=== PATIENT | male | born 1955 | race Two or more races ===

== ENCOUNTER 2021-06-27 10:36 | Inpatient (IN) | payer OTHER ==
[~2021-06-27] VITALS: Ht 177.8 cm; Wt 92.5 kg
[2021-06-27 11:07] LABS: Basophils # (auto) 0 10 ^3/uL (0-0.2); Basophils % (auto) 0.2 % (0.0-2.0); Eosinophils # (auto) 0 10 ^3/uL (0-0.8); Hematocrit 44.3 % (41.0-53.0); Hemoglobin 14.6 g/dL (13.5-17.5); Lymphocytes # (auto) 1.2 10 ^3/uL (0.4-5.4); Lymphocytes % (auto) 8.7 % (10.0-50.0); Mean Corpuscular Hemoglobin 30.6 pg (28.0-32.0); Mean Corpuscular Hgb Conc. 32.9 g/dL (32.0-36.0); Mean Corpuscular Volume 93.2 fL (80.0-100.0); Monocytes # (auto) 1.5 10 ^3/uL (0-1.3); Monocytes % (auto) 11.5 % (0.0-12.0); Neutrophils # (auto) 10.7 10 ^3/uL (1.6-8.6); Neutrophils % (auto) 79.6 % (37.0-80.0); Nucleated Red Blood Cells % 0.1 %; Red Blood Cells 4.75 10^6/uL (4.5-5.90); Red Cell Distribution Width 14.3 % (11.8-14.3); White Blood Cell 13.5 10^3/uL (4.4-10.8)
[2021-06-27] MEDS ORDERED: SODIUM CHLORIDE 0.9% 1,000 ML IVB ONE (11:15)
[2021-06-27 11:18] LABS: Albumin 3.6 g/dL (3.4-5.0); Anion Gap 16 (5-15); Calcium 8.6 mg/dL (8.5-10.1); Carbon Dioxide 17 mmol/L (21-32); Chloride 104 mmol/L (98-107); Magnesium 3.5 mg/dL (1.6-2.6); Potassium 4.1 mmol/L (3.5-5.1); Sodium 137 mmol/L (136-145)
[2021-06-27 11:26] LABS: Alanine Aminotransferase 31 U/L (16-61); Alkaline Phosphatase 65 U/L (45-117); Aspartate Aminotransferase 19 U/L (15-37); BUN/Creatinine Ratio 33.1; Bilirubin, Total 0.3 mg/dL (0.2-1.0); GFR African American 35 mL/min; GFR Non-African American 29 mL/min; Total Protein 7.3 g/dL (6.4-8.2)
[2021-06-27 11:32] LABS: Blood Urea Nitrogen 80 mg/dL (7-18); Glucose 639 mg/dL (74-106)
[2021-06-27] MEDS ORDERED: DEXTROSE (50%) 50ML SYRG IV PRN (15:00)
[2021-06-27] MEDS ORDERED: InsuLIN R (HUMAN) 100 UNITS in SODIUM CHL 0.9% 99 ML IV SCH (15:00)
[2021-06-27] MEDS ORDERED: SOD CHL 0.45% 1,000 ML IV ONE (15:00)
[2021-06-27] MEDS ORDERED: INSULIN LANTUS (GLARGINE) 1 /0.01ml (100units/ml) SC ONE (15:00)
[2021-06-27] MEDS ORDERED: MORPHINE SULFATE INJECTION 2 MG/ML SYRG IV PRN ×2 (15:00)
[2021-06-27] MEDS ORDERED: InsuLIN REG 1unit/0.01ml Soln (100units/ml) IV ONE (15:00)
[2021-06-27] MEDS ORDERED: ONDANSETRON HCL 4 MG/2 ML VIAL IV PRN (15:00)
[2021-06-27] MEDS ORDERED: NITROGLYCERIN 0.4 MG SL TAB SL PRN (15:00)
[2021-06-27] MEDS: ACCU-CHEK COMFORT CURVE STRIP VI SCH ×6 (15:50→22:57)
[2021-06-27] MEDS ORDERED: ACETAMINOPHEN 500 MG TAB PO PRN (16:15)
[2021-06-27 18:33] LABS: BUN/Creatinine Ratio 34.1; Calcium 8.1 mg/dL (8.5-10.1); Potassium 3.7 mmol/L (3.5-5.1)
[2021-06-28] MEDS: ACCU-CHEK COMFORT CURVE STRIP VI SCH ×10 (00:15→23:39)
[2021-06-28 01:46] LABS: Albumin 2.9 g/dL (3.4-5.0); BUN/Creatinine Ratio 31.7; Calcium 7.7 mg/dL (8.5-10.1); Potassium 3.5 mmol/L (3.5-5.1)
[2021-06-28 01:49] LABS: Bilirubin, Total 0.2 mg/dL (0.2-1.0); Total Protein 6.4 g/dL (6.4-8.2)
[2021-06-28 04:19] LABS: Basophils # (auto) 0 10 ^3/uL (0-0.2); Basophils % (auto) 0.2 % (0.0-2.0); Eosinophils # (auto) 0 10 ^3/uL (0-0.8); Hemoglobin 13.4 g/dL (13.5-17.5); Lymphocytes # (auto) 0.9 10 ^3/uL (0.4-5.4); Lymphocytes % (auto) 9.8 % (10.0-50.0); Mean Corpuscular Hemoglobin 31.2 pg (28.0-32.0); Mean Corpuscular Hgb Conc. 34.5 g/dL (32.0-36.0); Mean Corpuscular Volume 90.5 fL (80.0-100.0); Monocytes # (auto) 1.1 10 ^3/uL (0-1.3); Monocytes % (auto) 12.1 % (0.0-12.0); Neutrophils # (auto) 7.2 10 ^3/uL (1.6-8.6); Neutrophils % (auto) 77.9 % (37.0-80.0); Nucleated Red Blood Cells % 0.1 %; Red Blood Cells 4.31 10^6/uL (4.5-5.90); Red Cell Distribution Width 14.2 % (11.8-14.3); White Blood Cell 9.3 10^3/uL (4.4-10.8)
[2021-06-28 04:24] LABS: Calcium 7.9 mg/dL (8.5-10.1); Potassium 3.6 mmol/L (3.5-5.1)
[2021-06-28 04:31] LABS: Albumin 2.9 g/dL (3.4-5.0); BUN/Creatinine Ratio 32.5; Bilirubin, Total 0.3 mg/dL (0.2-1.0); Total Protein 6.2 g/dL (6.4-8.2)
[2021-06-28] MEDS: ALBUTEROL SULF HFA 90MCG INH 200DOSE IN PRN ×2 (07:00→18:58)
[2021-06-28] MEDS ORDERED: LABETALOL HCL 5 MG/ML 4ML SYRINGE IV ONE ×2 (08:58→09:00)
[2021-06-28] MEDS: ASCORBIC ACID 1,000 MG TAB PO SCH (09:22)
[2021-06-28] MEDS: ZINC SULFATE 220mg CAP or TAB PO SCH (09:22)
[2021-06-28] MEDS: AZITHROMYCIN 500MG/ 250ML 250 ML IV SCH (09:22)
[2021-06-28] MEDS: CHOLECALCIFEROL (VITD3) 2,000 UNIT CAP/TAB PO SCH (09:23)
[2021-06-28] MEDS: ENOXAPARIN SOD 40 MG/0.4 ML SYRINGE SC SCH ×2 (09:24→21:54)
[2021-06-28] MEDS ORDERED: SODIUM CHLORIDE 0.9% 1,000 ML IV SCH (09:30)
[2021-06-28 09:32] LABS: Albumin 3.1 g/dL (3.4-5.0); Calcium 8.3 mg/dL (8.5-10.1); Potassium 3.5 mmol/L (3.5-5.1)
[2021-06-28 09:35] LABS: BUN/Creatinine Ratio 29.3; Bilirubin, Total 0.4 mg/dL (0.2-1.0); Total Protein 6.7 g/dL (6.4-8.2)
[2021-06-28] MEDS ORDERED: INSULIN LANTUS (GLARGINE) 1 /0.01ml (100units/ml) SC SCH (10:00)
[2021-06-28] MEDS ORDERED: PANTOPRAZOLE 40 MG/10 ML VIAL INJ IV SCH (10:00)
[2021-06-28] MEDS ORDERED: DEXTROSE (50%) 50ML SYRG IV PRN ×5 (11:00→11:15)
[2021-06-28] MEDS ORDERED: INSULIN LANTUS (GLARGINE) 1 /0.01ml (100units/ml) SC ONE (11:00)
[2021-06-28] MEDS ORDERED: amLODIPine BESYLATE 5 MG TAB PO ONE ×4 (11:00)
[2021-06-28] MEDS ORDERED: hydrALAZINE HCL 20 MG/ML VL IV PRN ×3 (11:00)
[2021-06-28] MEDS: InsuLIN REG 1unit/0.01ml Soln (100units/ml) SC SCH ×3 (11:22→23:43)
[2021-06-28] MEDS ORDERED: POTASSIUM PHOSPHATE 26.4 MEQ in SODIUM CHL 0.9% 100 ML IV ONE (11:30)
[2021-06-28] MEDS ORDERED: ACCU-CHEK COMFORT CURVE STRIP VI SCH ×3 (12:00)
[2021-06-28] MEDS ORDERED: InsuLIN REG 1unit/0.01ml Soln (100units/ml) SC SCH ×4 (12:00)
[2021-06-28] MEDS ORDERED: LABETALOL HCL 200 MG TAB PO ONE (13:45)
[2021-06-28] MEDS: hydrALAZINE HCL 20 MG/ML VL IV PRN (14:28)
[2021-06-28 17:35] LABS: Urine Bacteria NONE SEEN /hpf (None Seen); Urine Blood Negative /uL (Negative); Urine Mucus FEW (None Seen); Urine Specific Gravity 1.024 (1.001-1.035); Urine WBC 1 /hpf (0 - 3)
[2021-06-28 20:50] VITALS: BP 130/69
[2021-06-28] MEDS: LABETALOL HCL 200 MG TAB PO SCH (21:54)
[2021-06-28 22:00] VITALS: BP 130/69
[2021-06-29] VITALS (7 sets, daily range): BP systolic 101–157; BP diastolic 48–75
[2021-06-29] MEDS: ACCU-CHEK COMFORT CURVE STRIP VI SCH ×4 (06:39→23:20)
[2021-06-29] MEDS: InsuLIN REG 1unit/0.01ml Soln (100units/ml) SC SCH ×4 (06:45→23:22)
[2021-06-29] MEDS: ALBUTEROL SULF HFA 90MCG INH 200DOSE IN PRN (06:53)
[2021-06-29] MEDS: AZITHROMYCIN 500MG/ 250ML 250 ML IV SCH (09:39)
[2021-06-29] MEDS: ZINC SULFATE 220mg CAP or TAB PO SCH (09:39)
[2021-06-29] MEDS: LABETALOL HCL 200 MG TAB PO SCH (09:40)
[2021-06-29] MEDS: ASCORBIC ACID 1,000 MG TAB PO SCH (09:41)
[2021-06-29] MEDS: CHOLECALCIFEROL (VITD3) 2,000 UNIT CAP/TAB PO SCH (09:41)
[2021-06-29] MEDS ORDERED: amLODIPine BESYLATE 5 MG TAB PO SCH ×4 (10:00)
[2021-06-29] MEDS: ENOXAPARIN SOD 40 MG/0.4 ML SYRINGE SC SCH (10:01)
[2021-06-29] MEDS: INSULIN LANTUS (GLARGINE) 1 /0.01ml (100units/ml) SC SCH (10:02)
[2021-06-29 10:24] LABS: Basophils # (auto) 0 10 ^3/uL (0-0.2); Basophils % (auto) 0.1 % (0.0-2.0); Eosinophils # (auto) 0 10 ^3/uL (0-0.8); Lymphocytes # (auto) 0.5 10 ^3/uL (0.4-5.4); Nucleated Red Blood Cells % 0.1 %
[2021-06-29 10:29] LABS: Hematocrit 36.4 % (41.0-53.0); Hemoglobin 12.1 g/dL (13.5-17.5); Lymphocytes % (auto) 14.2 % (10.0-50.0); Mean Corpuscular Hemoglobin 30.4 pg (28.0-32.0); Mean Corpuscular Hgb Conc. 33.3 g/dL (32.0-36.0); Mean Corpuscular Volume 91.4 fL (80.0-100.0); Monocytes # (auto) 0.7 10 ^3/uL (0-1.3); Monocytes % (auto) 17.1 % (0.0-12.0); Neutrophils # (auto) 2.6 10 ^3/uL (1.6-8.6); Neutrophils % (auto) 68.6 % (37.0-80.0); Red Blood Cells 3.98 10^6/uL (4.5-5.90); Red Cell Distribution Width 14.4 % (11.8-14.3); White Blood Cell 3.8 10^3/uL (4.4-10.8)
[2021-06-29 10:36] LABS: Calcium 7.7 mg/dL (8.5-10.1); Potassium 3.4 mmol/L (3.5-5.1)
[2021-06-29 10:38] LABS: BUN/Creatinine Ratio 26.3; Phosphorus 1.8 mg/dL (2.5-4.90)
[2021-06-29] MEDS ORDERED: BACLOFEN 10 MG TAB PO ONE (15:15)
[2021-06-29] MEDS ORDERED: PANTOPRAZOLE 40 MG TAB PO ONE (15:15)
[2021-06-29] MEDS ORDERED: BACLOFEN 10 MG TAB PO PRN (15:30)
[2021-06-29] MEDS ORDERED: SODIUM CHLORIDE 0.9% 1,000 ML IV ONE (20:45)
[2021-06-29] MEDS ORDERED: POTASSIUM CHL 10 Meq TABLET PO ONE (20:45)
[2021-06-30 04:30] VITALS: BP 146/71
[2021-06-30] MEDS: ACCU-CHEK COMFORT CURVE STRIP VI SCH ×4 (05:06→22:13)
[2021-06-30] MEDS: InsuLIN REG 1unit/0.01ml Soln (100units/ml) SC SCH ×4 (05:08→22:13)
[2021-06-30 06:24] LABS: Basophils # (auto) 0 10 ^3/uL (0-0.2); Basophils % (auto) 0.3 % (0.0-2.0); Eosinophils # (auto) 0 10 ^3/uL (0-0.8); Hematocrit 35.8 % (41.0-53.0); Hemoglobin 12.1 g/dL (13.5-17.5); Lymphocytes # (auto) 0.8 10 ^3/uL (0.4-5.4); Lymphocytes % (auto) 18.8 % (10.0-50.0); Mean Corpuscular Hemoglobin 30.6 pg (28.0-32.0); Mean Corpuscular Hgb Conc. 33.9 g/dL (32.0-36.0); Mean Corpuscular Volume 90.2 fL (80.0-100.0); Monocytes # (auto) 0.4 10 ^3/uL (0-1.3); Monocytes % (auto) 9.8 % (0.0-12.0); Neutrophils # (auto) 2.9 10 ^3/uL (1.6-8.6); Neutrophils % (auto) 71.1 % (37.0-80.0); Red Blood Cells 3.96 10^6/uL (4.5-5.90); Red Cell Distribution Width 13.8 % (11.8-14.3)
[2021-06-30 06:41] LABS: Calcium 7.3 mg/dL (8.5-10.1)
[2021-06-30 06:49] LABS: BUN/Creatinine Ratio 20.2
[2021-06-30] MEDS: ALBUTEROL SULF HFA 90MCG INH 200DOSE IN PRN (07:41)
[2021-06-30 09:00] VITALS: BP 148/75
[2021-06-30] MEDS: AZITHROMYCIN 500MG/ 250ML 250 ML IV SCH (10:00)
[2021-06-30] MEDS: ZINC SULFATE 220mg CAP or TAB PO SCH (10:00)
[2021-06-30] MEDS: PANTOPRAZOLE 40 MG TAB PO SCH (10:01)
[2021-06-30] MEDS: ASCORBIC ACID 1,000 MG TAB PO SCH (10:01)
[2021-06-30] MEDS: amLODIPine BESYLATE 5 MG TAB PO SCH (10:01)
[2021-06-30] MEDS: CHOLECALCIFEROL (VITD3) 2,000 UNIT CAP/TAB PO SCH (10:01)
[2021-06-30] MEDS: INSULIN LANTUS (GLARGINE) 1 /0.01ml (100units/ml) SC SCH (11:27)
[2021-06-30 13:00] VITALS: BP 138/59
[2021-06-30] MEDS ORDERED: POTASSIUM CHL 20 Meq TABLET PO ONE (14:00)
[2021-06-30 17:00] VITALS: BP 159/75
[2021-06-30 21:55] VITALS: BP 152/77
[2021-06-30] MEDS: BACLOFEN 10 MG TAB PO SCH (22:12)
[2021-06-30] MEDS: hydrALAZINE HCL 20 MG/ML VL IV PRN (22:14)
[2021-07-01 05:40] VITALS: BP 157/80
[2021-07-01] MEDS: BACLOFEN 10 MG TAB PO SCH ×3 (06:01→22:26)
[2021-07-01] MEDS: ACCU-CHEK COMFORT CURVE STRIP VI SCH ×4 (06:01→22:28)
[2021-07-01] MEDS: InsuLIN REG 1unit/0.01ml Soln (100units/ml) SC SCH ×4 (06:02→22:28)
[2021-07-01] MEDS: hydrALAZINE HCL 20 MG/ML VL IV PRN (06:05)
[2021-07-01] MEDS: ALBUTEROL SULF HFA 90MCG INH 200DOSE IN PRN ×2 (06:44→22:12)
[2021-07-01] MEDS: AZITHROMYCIN 500MG/ 250ML 250 ML IV SCH (09:21)
[2021-07-01] MEDS: PANTOPRAZOLE 40 MG TAB PO SCH (09:22)
[2021-07-01] MEDS: ZINC SULFATE 220mg CAP or TAB PO SCH (09:22)
[2021-07-01] MEDS: CHOLECALCIFEROL (VITD3) 2,000 UNIT CAP/TAB PO SCH (09:23)
[2021-07-01] MEDS: ASCORBIC ACID 1,000 MG TAB PO SCH (09:23)
[2021-07-01] MEDS: INSULIN LANTUS (GLARGINE) 1 /0.01ml (100units/ml) SC SCH ×2 (09:24→22:28)
[2021-07-01] MEDS: amLODIPine BESYLATE 5 MG TAB PO SCH (09:43)
[2021-07-01 10:25] VITALS: BP 157/75
[2021-07-01] MEDS ORDERED: LOSARTAN POTASSIUM 25 MG TAB PO ONE (10:45)
[2021-07-01] MEDS ORDERED: REMDESIVIR 200 MG in NS 210ml LOADING DOSE ADULT IV ONE (11:30)
[2021-07-01] MEDS ORDERED: guaiFENesin-DM 100/10mg/5ml SYR PO PRN (11:30)
[2021-07-01] MEDS ORDERED: REMDESIVIR PER PHARMACY 0 ML IV SCH (11:30)
[2021-07-01 11:50] LABS: Basophils # (auto) 0 10 ^3/uL (0-0.2); Basophils % (auto) 0.4 % (0.0-2.0); Eosinophils # (auto) 0 10 ^3/uL (0-0.8); Eosinophils % (auto) 0.1 % (0.0-7.0); Hematocrit 38.4 % (41.0-53.0); Hemoglobin 12.7 g/dL (13.5-17.5); Lymphocytes # (auto) 0.6 10 ^3/uL (0.4-5.4); Lymphocytes % (auto) 13.1 % (10.0-50.0); Mean Corpuscular Hgb Conc. 33.1 g/dL (32.0-36.0); Mean Corpuscular Volume 90.6 fL (80.0-100.0); Monocytes # (auto) 0.5 10 ^3/uL (0-1.3); Monocytes % (auto) 10.9 % (0.0-12.0); Neutrophils # (auto) 3.4 10 ^3/uL (1.6-8.6); Neutrophils % (auto) 75.5 % (37.0-80.0); Nucleated Red Blood Cells % 0.1 %; Red Blood Cells 4.24 10^6/uL (4.5-5.90); Red Cell Distribution Width 14.2 % (11.8-14.3); White Blood Cell 4.5 10^3/uL (4.4-10.8)
[2021-07-01 12:02] LABS: Albumin 2.1 g/dL (3.4-5.0); Calcium 7.3 mg/dL (8.5-10.1); Potassium 3.1 mmol/L (3.5-5.1)
[2021-07-01 12:25] LABS: BUN/Creatinine Ratio 15.1; Bilirubin, Total 0.6 mg/dL (0.2-1.0); Total Protein 5.6 g/dL (6.4-8.2)
[2021-07-01] MEDS: IVERMECTIN 3 MG TAB PO SCH (12:43)
[2021-07-01 13:11] VITALS: BP 151/83
[2021-07-01] MEDS ORDERED: FUROSEMIDE 40 MG/4 ML VIAL IV ONE (14:00)
[2021-07-01] MEDS ORDERED: POTASSIUM CHL 20 Meq TABLET PO ONE (14:00)
[2021-07-01 17:13] LABS: Basophils # (auto) 0 10 ^3/uL (0-0.2); Basophils % (auto) 0.1 % (0.0-2.0); Eosinophils # (auto) 0 10 ^3/uL (0-0.8); Hematocrit 37.9 % (41.0-53.0); Hemoglobin 12.6 g/dL (13.5-17.5); Lymphocytes # (auto) 0.9 10 ^3/uL (0.4-5.4); Lymphocytes % (auto) 20.8 % (10.0-50.0); Mean Corpuscular Hemoglobin 29.7 pg (28.0-32.0); Mean Corpuscular Hgb Conc. 33.3 g/dL (32.0-36.0); Mean Corpuscular Volume 89.3 fL (80.0-100.0); Monocytes # (auto) 0.4 10 ^3/uL (0-1.3); Monocytes % (auto) 10.1 % (0.0-12.0); Neutrophils # (auto) 2.9 10 ^3/uL (1.6-8.6); Red Blood Cells 4.24 10^6/uL (4.5-5.90); Red Cell Distribution Width 13.8 % (11.8-14.3); White Blood Cell 4.3 10^3/uL (4.4-10.8)
[2021-07-01 17:38] LABS: INR 0.99 (0.9-1.15)
[2021-07-01 22:00] VITALS: BP 132/69
[2021-07-01] MEDS: BUDESONIDE (INHALATION) 180 MCG IH IN SCH (22:12)
[2021-07-02 04:57] VITALS: BP 133/69
[2021-07-02 05:21] VITALS: BP 133/69
[2021-07-02] MEDS: ACCU-CHEK COMFORT CURVE STRIP VI SCH ×3 (06:03→16:46)
[2021-07-02] MEDS: InsuLIN REG 1unit/0.01ml Soln (100units/ml) SC SCH ×4 (06:05→23:59)
[2021-07-02] MEDS: BACLOFEN 10 MG TAB PO SCH ×2 (06:12→12:42)
[2021-07-02] MEDS: BUDESONIDE (INHALATION) 180 MCG IH IN SCH ×2 (06:59→20:50)
[2021-07-02] MEDS: ALBUTEROL SULF HFA 90MCG INH 200DOSE IN PRN ×2 (07:00→20:51)
[2021-07-02 09:00] VITALS: BP 135/73
[2021-07-02] MEDS: AZITHROMYCIN 500MG/ 250ML 250 ML IV SCH (09:07)
[2021-07-02] MEDS: CHOLECALCIFEROL (VITD3) 2,000 UNIT CAP/TAB PO SCH (09:08)
[2021-07-02] MEDS: DexAMETHasone SOD PHOS 10MG/1ML VIAL INJ IV SCH (09:08)
[2021-07-02] MEDS: IVERMECTIN 3 MG TAB PO SCH (09:08)
[2021-07-02] MEDS: amLODIPine BESYLATE 5 MG TAB PO SCH (09:09)
[2021-07-02] MEDS: ASCORBIC ACID 1,000 MG TAB PO SCH (09:09)
[2021-07-02] MEDS: ZINC SULFATE 220mg CAP or TAB PO SCH (09:10)
[2021-07-02] MEDS: LOSARTAN POTASSIUM 25 MG TAB PO SCH (09:10)
[2021-07-02] MEDS: PANTOPRAZOLE 40 MG TAB PO SCH (09:11)
[2021-07-02] MEDS: INSULIN LANTUS (GLARGINE) 1 /0.01ml (100units/ml) SC SCH ×3 (09:22→22:00)
[2021-07-02] MEDS ORDERED: guaiFENesin-DM 100/10mg/5ml SYR PO PRN (11:45)
[2021-07-02 13:00] VITALS: BP 123/47
[2021-07-02] MEDS: REMDESIVIR 100mg 100 MG in SODIUM CHL 0.9% 230 ML IV SCH (16:46)
[2021-07-02 17:00] VITALS: BP 127/64
[2021-07-02 22:00] VITALS: BP 135/58
[2021-07-02] MEDS ORDERED: BACLOFEN 10 MG TAB PO PRN (22:00)
[2021-07-03] MEDS: ACCU-CHEK COMFORT CURVE STRIP VI SCH ×5 (00:02→22:47)
[2021-07-03 05:00] VITALS: BP 120/61
[2021-07-03] MEDS: InsuLIN REG 1unit/0.01ml Soln (100units/ml) SC SCH ×4 (05:46→22:48)
[2021-07-03 05:56] LABS: Basophils # (auto) 0 10 ^3/uL (0-0.2); Basophils % (auto) 0.4 % (0.0-2.0); Eosinophils # (auto) 0 10 ^3/uL (0-0.8); Hemoglobin 12.6 g/dL (13.5-17.5); Lymphocytes % (auto) 21.5 % (10.0-50.0); Mean Corpuscular Hgb Conc. 33.9 g/dL (32.0-36.0); Mean Corpuscular Volume 88.6 fL (80.0-100.0); Monocytes # (auto) 0.7 10 ^3/uL (0-1.3); Monocytes % (auto) 16.4 % (0.0-12.0); Neutrophils # (auto) 2.8 10 ^3/uL (1.6-8.6); Neutrophils % (auto) 61.7 % (37.0-80.0); Nucleated Red Blood Cells % 0.1 %; Red Blood Cells 4.18 10^6/uL (4.5-5.90); Red Cell Distribution Width 13.8 % (11.8-14.3); White Blood Cell 4.5 10^3/uL (4.4-10.8)
[2021-07-03 06:28] LABS: Albumin 2.1 g/dL (3.4-5.0); Potassium 3.3 mmol/L (3.5-5.1)
[2021-07-03 06:33] LABS: Bilirubin, Total 0.6 mg/dL (0.2-1.0); Total Protein 5.8 g/dL (6.4-8.2)
[2021-07-03] MEDS: BUDESONIDE (INHALATION) 180 MCG IH IN SCH ×2 (06:53→21:34)
[2021-07-03] MEDS: ALBUTEROL SULF HFA 90MCG INH 200DOSE IN PRN ×2 (06:53→21:34)
[2021-07-03] MEDS: AZITHROMYCIN 500MG/ 250ML 250 ML IV SCH (08:27)
[2021-07-03] MEDS: DexAMETHasone SOD PHOS 10MG/1ML VIAL INJ IV SCH (08:27)
[2021-07-03] MEDS: ZINC SULFATE 220mg CAP or TAB PO SCH (08:28)
[2021-07-03] MEDS: LOSARTAN POTASSIUM 25 MG TAB PO SCH (08:29)
[2021-07-03] MEDS: amLODIPine BESYLATE 5 MG TAB PO SCH (08:30)
[2021-07-03] MEDS: PANTOPRAZOLE 40 MG TAB PO SCH (08:30)
[2021-07-03] MEDS: IVERMECTIN 3 MG TAB PO SCH (08:31)
[2021-07-03] MEDS: ASCORBIC ACID 1,000 MG TAB PO SCH (08:31)
[2021-07-03] MEDS: CHOLECALCIFEROL (VITD3) 2,000 UNIT CAP/TAB PO SCH (08:32)
[2021-07-03] MEDS: INSULIN LANTUS (GLARGINE) 1 /0.01ml (100units/ml) SC SCH ×2 (08:33→22:47)
[2021-07-03 09:00] VITALS: BP 132/61
[2021-07-03] MEDS ORDERED: POTASSIUM CHL 20 Meq TABLET PO ONE (09:15)
[2021-07-03] MEDS: ENOXAPARIN SOD 40 MG/0.4 ML SYRINGE SC SCH (10:23)
[2021-07-03 13:00] VITALS: BP 141/70
[2021-07-03] MEDS ORDERED: ZOLPIDEM TARTRATE 5 MG TAB PO PRN (14:00)
[2021-07-03] MEDS: REMDESIVIR 100mg 100 MG in SODIUM CHL 0.9% 230 ML IV SCH (15:16)
[2021-07-03 16:59] VITALS: BP 111/55
[2021-07-03 22:00] VITALS: BP 133/95
[2021-07-04 05:00] VITALS: BP 115/59
[2021-07-04] MEDS: ACCU-CHEK COMFORT CURVE STRIP VI SCH ×4 (05:30→23:45)
[2021-07-04] MEDS: InsuLIN REG 1unit/0.01ml Soln (100units/ml) SC SCH ×4 (05:30→23:45)
[2021-07-04 06:29] LABS: Albumin 2.1 g/dL (3.4-5.0); BUN/Creatinine Ratio 22.4; Bilirubin, Total 0.6 mg/dL (0.2-1.0); Calcium 7.7 mg/dL (8.5-10.1); Total Protein 5.3 g/dL (6.4-8.2)
[2021-07-04] MEDS: ALBUTEROL SULF HFA 90MCG INH 200DOSE IN PRN ×2 (06:54→21:54)
[2021-07-04] MEDS: BUDESONIDE (INHALATION) 180 MCG IH IN SCH ×2 (06:55→21:54)
[2021-07-04 08:36] LABS: Potassium 2.7 mmol/L (3.5-5.1)
[2021-07-04 09:00] VITALS: BP 133/69
[2021-07-04] MEDS ORDERED: POTASSIUM CHL 20 Meq TABLET PO ONE (09:15)
[2021-07-04] MEDS ORDERED: POTASSIUM CHLORIDE 40 MEQ, LIDOCAINE 1% (LOCAL ANESTH.) 4 ML in SODIUM CHL 0.9% 250 ML IV ONE (09:15)
[2021-07-04] MEDS: DexAMETHasone SOD PHOS 10MG/1ML VIAL INJ IV SCH (10:55)
[2021-07-04] MEDS: AZITHROMYCIN 500MG/ 250ML 250 ML IV SCH (10:55)
[2021-07-04] MEDS: ZINC SULFATE 220mg CAP or TAB PO SCH (10:56)
[2021-07-04] MEDS: LOSARTAN POTASSIUM 25 MG TAB PO SCH (10:56)
[2021-07-04] MEDS: PANTOPRAZOLE 40 MG TAB PO SCH (10:57)
[2021-07-04] MEDS: IVERMECTIN 3 MG TAB PO SCH (10:57)
[2021-07-04] MEDS: amLODIPine BESYLATE 5 MG TAB PO SCH (10:57)
[2021-07-04] MEDS: ASCORBIC ACID 1,000 MG TAB PO SCH (10:58)
[2021-07-04] MEDS: CHOLECALCIFEROL (VITD3) 2,000 UNIT CAP/TAB PO SCH (10:58)
[2021-07-04] MEDS: ENOXAPARIN SOD 40 MG/0.4 ML SYRINGE SC SCH (10:59)
[2021-07-04] MEDS: INSULIN LANTUS (GLARGINE) 1 /0.01ml (100units/ml) SC SCH ×2 (11:59→23:10)
[2021-07-04 13:00] VITALS: BP 142/77
[2021-07-04] MEDS: REMDESIVIR 100mg 100 MG in SODIUM CHL 0.9% 230 ML IV SCH (15:44)
[2021-07-04 17:12] VITALS: BP 136/56
[2021-07-04 22:00] VITALS: BP 123/68
[2021-07-05 05:00] VITALS: BP 108/57
[2021-07-05] MEDS: ACCU-CHEK COMFORT CURVE STRIP VI SCH ×3 (05:59→18:00)
[2021-07-05] MEDS: InsuLIN REG 1unit/0.01ml Soln (100units/ml) SC SCH ×3 (05:59→18:00)
[2021-07-05 07:07] LABS: Basophils # (auto) 0 10 ^3/uL (0-0.2); Basophils % (auto) 0.1 % (0.0-2.0); Eosinophils # (auto) 0 10 ^3/uL (0-0.8); Hematocrit 33.9 % (41.0-53.0); Hemoglobin 11.2 g/dL (13.5-17.5); Lymphocytes # (auto) 0.7 10 ^3/uL (0.4-5.4); Lymphocytes % (auto) 11.4 % (10.0-50.0); Mean Corpuscular Hemoglobin 29.9 pg (28.0-32.0); Mean Corpuscular Hgb Conc. 33.1 g/dL (32.0-36.0); Mean Corpuscular Volume 90.2 fL (80.0-100.0); Monocytes # (auto) 0.6 10 ^3/uL (0-1.3); Monocytes % (auto) 9.5 % (0.0-12.0); Neutrophils # (auto) 5.2 10 ^3/uL (1.6-8.6); Red Blood Cells 3.76 10^6/uL (4.5-5.90); Red Cell Distribution Width 13.8 % (11.8-14.3); White Blood Cell 6.5 10^3/uL (4.4-10.8)
[2021-07-05 07:41] LABS: Albumin 1.9 g/dL (3.4-5.0); Calcium 7.4 mg/dL (8.5-10.1); Potassium 3.8 mmol/L (3.5-5.1)
[2021-07-05 07:45] LABS: Bilirubin, Total 0.5 mg/dL (0.2-1.0); Total Protein 5.2 g/dL (6.4-8.2)
[2021-07-05 09:00] VITALS: BP 125/67
[2021-07-05] MEDS ORDERED: CHOL1CAP47 PO (09:18)
[2021-07-05] MEDS ORDERED: ASCO10003 PO (09:18)
[2021-07-05] MEDS ORDERED: ZINC220T6 PO (09:18)
[2021-07-05] MEDS ORDERED: AMOX-277 PO (09:18)
[2021-07-05] MEDS ORDERED: ALBUAER3 IN (09:18)
[2021-07-05] MEDS: BUDESONIDE (INHALATION) 180 MCG IH IN SCH (09:41)
[2021-07-05] MEDS: ALBUTEROL SULF HFA 90MCG INH 200DOSE IN PRN (09:41)
[2021-07-05] MEDS: ENOXAPARIN SOD 40 MG/0.4 ML SYRINGE SC SCH (09:45)
[2021-07-05] MEDS ORDERED: LOSA-39 PO (09:56)
[2021-07-05] MEDS ORDERED: CHOL20007 PO (09:56)
[2021-07-05] MEDS ORDERED: INSLISPI SC (09:56)
[2021-07-05] MEDS ORDERED: DULA0.5I SC (09:56)
[2021-07-05] MEDS ORDERED: INSLANTI SC (09:56)
[2021-07-05] MEDS ORDERED: CARV6.2551 PO (09:56)
[2021-07-05] MEDS ORDERED: ROSU40TA PO (09:56)
[2021-07-05] MEDS: AZITHROMYCIN 500MG/ 250ML 250 ML IV SCH (10:00)
[2021-07-05] MEDS: DexAMETHasone SOD PHOS 10MG/1ML VIAL INJ IV SCH (10:00)
[2021-07-05] MEDS: ZINC SULFATE 220mg CAP or TAB PO SCH (10:01)
[2021-07-05] MEDS: ASCORBIC ACID 1,000 MG TAB PO SCH (10:01)
[2021-07-05] MEDS: CHOLECALCIFEROL (VITD3) 2,000 UNIT CAP/TAB PO SCH (10:01)
[2021-07-05] MEDS: IVERMECTIN 3 MG TAB PO SCH (10:02)
[2021-07-05] MEDS: PANTOPRAZOLE 40 MG TAB PO SCH (10:02)
[2021-07-05] MEDS: amLODIPine BESYLATE 5 MG TAB PO SCH (10:03)
[2021-07-05] MEDS: LOSARTAN POTASSIUM 25 MG TAB PO SCH (10:03)
[2021-07-05] MEDS: INSULIN LANTUS (GLARGINE) 1 /0.01ml (100units/ml) SC SCH (10:18)
[2021-07-05 13:00] VITALS: BP 127/64
[2021-07-05] MEDS: REMDESIVIR 100mg 100 MG in SODIUM CHL 0.9% 230 ML IV SCH (15:30)
[2021-07-05 16:46] VITALS: BP 126/63
== END 2021-07-05 22:40 | disposition home or self-care (01) | DRG 871 ==
LOC: ER 10:36 → TELE 14:47 → TELE-EAST 06-28 20:26
PROVIDERS: ADMIT Nurse Practitioner Acute Care; ATTEND Internal Medicine
PROC: XW033E5 Introduction of Remdesivir Anti-infective into Peripheral Vein, Percutaneous Approach, New Technology Group 5 (ICD-10-PCS; principal; 2021-07-01)
DX: A41.89 Other specified sepsis (principal); U07.1 COVID-19; E11.10 Type 2 diabetes mellitus with ketoacidosis without coma; N17.0 Acute kidney failure with tubular necrosis; J12.82 Pneumonia due to coronavirus disease 2019; J96.00 Acute respiratory failure, unspecified whether with hypoxia or hypercapnia; N18.4 Chronic kidney disease, stage 4 (severe); E83.41 Hypermagnesemia; E11.21 Type 2 diabetes mellitus with diabetic nephropathy; E66.9 Obesity, unspecified; E11.40 Type 2 diabetes mellitus with diabetic neuropathy, unspecified; D69.59 Other secondary thrombocytopenia; I12.9 Hypertensive chronic kidney disease with stage 1 through stage 4 chronic kidney disease, or unspecified chronic kidney disease; Z68.29 Body mass index [BMI] 29.0-29.9, adult
CPT/HCPCS: 36415; 36600; 71045; 71250; 74176; 80048; 80053; 81001; 82010; 82728; 82805; 82962; 83036; 83735; 83930; 84100; 84132; 84443; 84484; 85025; 85379; 85384; 85610; 85730; 86141; 87426; 93005; 94640; 96361; 96374; C9113; G0378; J1100; J1815; J2001; J3490

== ENCOUNTER 2024-01-10 12:05 | Emergency (ER) | payer OTHER ==
[~2024-01-10] VITALS: Ht 177.8 cm; Wt 92.6 kg
[~2024-01-10 12:05] MED LIST: ALBUAER3 IN; AMOX875T4 PO; ASCO10003 PO; CARV6.2551 PO; CHOL1CAP47 PO; CHOL20007 PO; DULA0.5I SC; INSLANTI SC; INSLISPI SC; LOSA100T58 PO; ROSU40TA81 PO; ZINC220T6 PO
[2024-01-10 13:35] LABS: Rapid Influenza A Negative (Negative); Rapid Influenza B Negative (Negative)
[2024-01-10] MEDS ORDERED: ACET500T58 PO (13:42)
[2024-01-10] MEDS ORDERED: PRED10TA PO (13:42)
[2024-01-10] MEDS ORDERED: OSEL75CA5 PO (13:42)
[2024-01-10 13:45] LABS: COVID19 ANTIGEN SOFIA FIA NEGATIVE (NEGATIVE)
[2024-01-10 14:25] VITALS: BP 133/78; PULSE 101; RESP 18; TEMP 98; O2SAT 97
[2024-01-10] MEDS: OSELTAMIVIR 75 MG CAP PO ONE (14:31)
== END 2024-01-10 14:33 | disposition home or self-care (01) ==
LOC: ER 12:05
DX: J06.9 Acute upper respiratory infection, unspecified (principal); E11.9 Type 2 diabetes mellitus without complications; I10 Essential (primary) hypertension; Z20.822 Contact with and (suspected) exposure to COVID-19
CPT/HCPCS: 36415; 87426; 87804

== ENCOUNTER 2024-03-20 10:40 | Emergency (ER) | payer OTHER ==
[~2024-03-20] VITALS: Ht 177.8 cm; Wt 95.4 kg
[~2024-03-20 10:40] MED LIST changes: +ACET500T58 PO; +LOSA-535 PO; -LOSA100T58 PO; +OSEL75CA5 PO; +PRED10TA PO
[2024-03-20] MEDS: ONDANSETRON ODT 4 MG TAB PO ONE (11:51)
[2024-03-20] MEDS: MEPERIDINE HCL (50 MG/ML) 1 ML VIAL IM ONE (11:56)
[2024-03-20] MEDS ORDERED: amLODIPine BESYLATE 5 MG TAB PO ONE (12:15)
[2024-03-20] MEDS: LOSARTAN POTASSIUM 50 MG TAB PO ONE (12:17)
[2024-03-20] MEDS: diphenhdrAMINE HCL 50 MG/1 ML VL IM ONE (12:29)
[2024-03-20 12:54] VITALS: PULSE 98; RESP 18; TEMP 98.4; O2SAT 100
[2024-03-20] MEDS ORDERED: HYDR-4798 PO (12:55)
[2024-03-20 12:56] VITALS: BP 170/91; PULSE 78; RESP 18
== END 2024-03-20 13:09 | disposition home or self-care (01) ==
LOC: ER 10:40
DX: M51.16 Intervertebral disc disorders with radiculopathy, lumbar region (principal); M48.061 Spinal stenosis, lumbar region without neurogenic claudication; I10 Essential (primary) hypertension; E11.9 Type 2 diabetes mellitus without complications; Z91.148 Patient's other noncompliance with medication regimen for other reason; Z79.899 Other long term (current) drug therapy
CPT/HCPCS: 72100; 72131; 96372; 99285; J1200; J2175; Q0162

== ENCOUNTER 2024-04-21 21:38 | Inpatient (IN) | payer OTHER ==
[~2024-04-21] VITALS: Ht 177.8 cm; Wt 94.5 kg
[~2024-04-21 21:38] MED LIST changes: +HYDR-4798 PO
[2024-04-21 22:37] LABS: Eosinophils # (auto) 0 10 ^3/uL (0-0.8); Lymphocytes # (auto) 1.9 10 ^3/uL (0.4-5.4); Mean Corpuscular Hgb Conc. 28.2 g/dL (32.0-36.0); Red Cell Distribution Width 16.1 % (11.8-14.3)
[2024-04-21 22:39] LABS: Basophils # (auto) 0.2 10 ^3/uL (0-0.2); Basophils % (auto) 1.1 % (0.0-2.0); Eosinophils % (auto) 0.2 % (0.0-7.0); Hematocrit 50.6 % (41.0-53.0); Hemoglobin 14.3 g/dL (13.5-17.5); Mean Corpuscular Hemoglobin 30.3 pg (28.0-32.0); Mean Corpuscular Volume 107.6 fL (80.0-100.0); Monocytes # (auto) 1.1 10 ^3/uL (0-1.3); Monocytes % (auto) 5.3 % (0.0-12.0); Neutrophils # (auto) 18.1 10 ^3/uL (1.6-8.6); Neutrophils % (auto) 84.4 % (37.0-80.0); White Blood Cell 21.5 10^3/uL (4.4-10.8)
[2024-04-21 22:55] LABS: Alanine Aminotransferase 18 U/L (7-40); Albumin 4.5 g/dL (3.2-4.8); Alkaline Phosphatase 79 U/L (46-116); Anion Gap 28.00001 (5-15); Aspartate Aminotransferase 8 U/L (13-40); BUN/Creatinine Ratio 9.6 (10.0-20.0); Bilirubin, Total 0.3 mg/dL (0.2-1.0); Blood Urea Nitrogen 22 mg/dL (9-23); Calcium 9.5 mg/dL (8.7-10.4); Chloride 98 mmol/L (98-107); Lipase 33 U/L (12-53); Sodium 136 mmol/L (136-145); Total Protein 7.3 g/dL (5.7-8.2)
[2024-04-21 23:08] LABS: Carbon Dioxide < 10 mmol/L (20-30); Glucose 945 mg/dL (74-106)
[2024-04-22] VITALS (58 sets, daily range): BP systolic 87–128; BP diastolic 48–68; PULSE 70–124; RESP 12–30; TEMP 98.6–99.6; O2SAT 96–100
[2024-04-22] MEDS ORDERED: INSULIN DRIP 100 UNIT/100ML 100 ML IV SCH ×3 (00:45→15:00)
[2024-04-22] MEDS: ACETAMINOPHEN 325 MG TAB PO ONE (00:45)
[2024-04-22] MEDS ORDERED: SODIUM CHLORIDE 0.9% 1,000 ML IV SCH (00:45)
[2024-04-22] MEDS ORDERED: DEXTROSE (50%) 50ML SYRG IV PRN ×4 (00:45→15:30)
[2024-04-22] MEDS: MIDAZOLAM HCL 2MG/2ML 2ml VIAL (1mg/ml) ONE (00:47)
[2024-04-22] MEDS: MIDAZOLAM HCL 5 MG/ML-1ML VIAL IV ONE (00:47)
[2024-04-22] MEDS ORDERED: HYDROcodone-ACET 5/325MG TAB PO PRN (01:00)
[2024-04-22] MEDS ORDERED: MORPHINE SULFATE INJ 2 MG/ml SYRG IV PRN (01:00)
[2024-04-22] MEDS: PANTOPRAZOLE 80 MG in SODIUM CHL 0.9% 100 ML IV ONE (01:00)
[2024-04-22] MEDS ORDERED: NITROGLYCERIN 0.4 MG SL TAB SL PRN (01:00)
[2024-04-22] MEDS: ONDANSETRON HCL 4 MG/2 ML VIAL IV ONE (01:00)
[2024-04-22] MEDS ORDERED: ONDANSETRON HCL 4 MG/2 ML VIAL IV PRN (01:00)
[2024-04-22] MEDS: INSULIN LANTUS (GLARGINE) 1 /0.01ml (100units/ml) SC ONE (01:07)
[2024-04-22] MEDS: InsuLIN REG 1unit/0.01ml Soln (100units/ml) IV ONE ×2 (01:07→02:00)
[2024-04-22] MEDS: INSULIN DRIP 100 UNIT/100ML 100 ML IV SCH ×3 (01:09→06:15)
[2024-04-22] MEDS: SODIUM CHLORIDE 0.9% 1,000 ML IVB ONE (01:09)
[2024-04-22 01:16] LABS: Basophils # (auto) 0.1 10 ^3/uL (0-0.2); Basophils % (auto) 0.3 % (0.0-2.0); Eosinophils # (auto) 0 10 ^3/uL (0-0.8); Eosinophils % (auto) 0.1 % (0.0-7.0); Hematocrit 48.4 % (41.0-53.0); Hemoglobin 13.4 g/dL (13.5-17.5); Lymphocytes % (auto) 8.9 % (10.0-50.0); Mean Corpuscular Hemoglobin 30.4 pg (28.0-32.0); Mean Corpuscular Hgb Conc. 27.7 g/dL (32.0-36.0); Mean Corpuscular Volume 109.4 fL (80.0-100.0); Monocytes # (auto) 2.1 10 ^3/uL (0-1.3); Monocytes % (auto) 9.1 % (0.0-12.0); Neutrophils # (auto) 18.7 10 ^3/uL (1.6-8.6); Neutrophils % (auto) 81.6 % (37.0-80.0); Red Blood Cells 4.43 10^6/uL (4.5-5.90); Red Cell Distribution Width 15.5 % (11.8-14.3); White Blood Cell 22.9 10^3/uL (4.4-10.8)
[2024-04-22] MEDS: LORazepam 2MG/ML-1ML VIAL ONE (01:29)
[2024-04-22 01:30] LABS: INR 1.02 (0.9-1.15); Partial Thromboplastin Time 30.2 SEC (24.5-34.5); Prothrombin Time 10.8 sec (9.3-11.8)
[2024-04-22] MEDS ORDERED: ACCU-CHEK COMFORT CURVE STRIP VI SCH ×3 (01:30→07:30)
[2024-04-22 01:31] LABS: Chloride 95 mmol/L (98-107)
[2024-04-22 01:32] LABS: Anion Gap 25.00001 (5-15); Calcium 9.1 mg/dL (8.7-10.4)
[2024-04-22 01:37] LABS: BUN/Creatinine Ratio 10.1 (10.0-20.0); Blood Urea Nitrogen 27 mg/dL (9-23)
[2024-04-22 01:38] LABS: Magnesium 2.4 mg/dL (1.6-2.6)
[2024-04-22 01:39] LABS: Phosphorus 11.5 mg/dL (2.4-5.1)
[2024-04-22] MEDS: MAGNESIUM SULFATE 1GM/100ML 200 ML IV ONE (01:45)
[2024-04-22] MEDS: ETOMIDATE (2MG/ML) 20ML VIAL IV ONE (01:46)
[2024-04-22] MEDS: SUCCINYLCHOLINE CHLORIDE 20 MG/ML 10ML VIAL IV ONE (01:46)
[2024-04-22 01:49] LABS: Sodium 130 mmol/L (136-145)
[2024-04-22 01:50] LABS: Potassium 6.4 mmol/L (3.5-5.1)
[2024-04-22 01:51] LABS: Carbon Dioxide < 10 mmol/L (20-30); Glucose 1094 mg/dL (74-106); Lactic Acid w/Reflex 9.3 mmol/L (0.4-2.0)
[2024-04-22] MEDS: MIDAZOLAM DRIP 50 mg/50mL 50 ML IV ONE (01:52)
[2024-04-22] MEDS: fentaNYL Drip 2500mCg/250mlNS 250 ML IV ONE (01:58)
[2024-04-22] MEDS: fentaNYL Drip 2500mCg/250mlNS 250 ML IV SCH ×2 (02:00→06:45)
[2024-04-22] MEDS: SODIUM BICARB 8.4% 50Meq/50ml SYR Vial IV ONE ×3 (02:00→03:37)
[2024-04-22] MEDS: MIDAZOLAM DRIP 50 mg/50mL 50 ML IV SCH ×2 (02:00)
[2024-04-22] MEDS: SODIUM ZIRCONIUM CYCL 10 GM PAK GT ONE (02:00)
[2024-04-22 02:02] LABS: Acetaminophen < 2.0 UG/ML (10.0-20.0)
[2024-04-22 02:03] LABS: Salicylate < 3.0 mg/dL (2.8-20.0)
[2024-04-22 02:06] LABS: Blood Alcohol < 3.0 mg/dL (<10)
[2024-04-22] MEDS: ACCU-CHEK COMFORT CURVE STRIP VI SCH ×4 (02:30→16:32)
[2024-04-22 02:51] LABS: Urine Bacteria None Seen /hpf (None Seen)
[2024-04-22 03:09] LABS: Urine Blood TRACE /uL (Negative); Urine Clarity Clear (Clear); Urine Color Light-Yellow (Yellow); Urine Hyaline Cast FEW /lpf (0 - 2); Urine Mucus FEW (None Seen); Urine Protein, UAD 1+ (Negative); Urine Specific Gravity 1.023 (1.001-1.035); Urine Urobilinogen Normal (Negative); Urine WBC 2 /hpf (0 - 3); Urine pH 5.5 (5.0-9.0)
[2024-04-22 03:10] LABS: Amphetamine Screen, Urine Neg (NEGATIVE); Barbiturate Scree,Urine Neg (NEGATIVE); Benzodiazephine Screen, Urine Neg (NEGATIVE); Cocaine Screen, Urine Neg (NEGATIVE)
[2024-04-22 03:11] LABS: Cannabinoid Screen, Urine Pos (NEGATIVE); Opiate Scree,Urine Neg (NEGATIVE); Phencyclidine Screen, Urine Neg (NEGATIVE)
[2024-04-22] MEDS: SODIUM BICARB 50mEq/50ml Vial 100 ML in SOD CHL 0.45% 1,000 ML IV SCH (03:29)
[2024-04-22] MEDS: AMIODARONE BOLUS KIT 100 ML IV ONE (03:34)
[2024-04-22] MEDS: AMIODARONE 450mg/250ml AE 250 ML IV SCH (03:35)
[2024-04-22] MEDS: cefTRIAXone 1GM/50ML D5W 50 ML IV ONE (03:35)
[2024-04-22] MEDS: SODIUM CHLORIDE 0.9% 1,000 ML IV SCH ×3 (03:35→06:45)
[2024-04-22] MEDS: AMIODARONE HCL (50 MG/ ML) 3 ML VIAL IV ONE (03:40)
[2024-04-22] MEDS ORDERED: VANCOMYCIN PER PHARMACY 0 MG IV SCH (03:45)
[2024-04-22 03:55] LABS: Base Excess -18.3 mmol/L (-2.0-2.0)
[2024-04-22] MEDS: CALCIUM GLUC 1,000mg/50ml-NS 50 ML IV ONE (03:55)
[2024-04-22] MEDS: PANTOPRAZOLE 40 MG/10 ML VIAL INJ IV ONE (04:01)
[2024-04-22] MEDS: VANCOMYCIN 1GM/200ML 200 ML IV ONE (04:17)
[2024-04-22] MEDS: PHENYLEPHRINE IV 250 ML IV SCH (06:08)
[2024-04-22] MEDS: PIPERACILLIN-TAZOB 3.375GM 100 ML IV SCH (06:23)
[2024-04-22 07:45] LABS: Chloride 104 mmol/L (98-107); Sodium 138 mmol/L (136-145)
[2024-04-22 07:46] LABS: Anion Gap 17 (5-15); Calcium 8.5 mg/dL (8.7-10.4); Carbon Dioxide 17 mmol/L (20-30)
[2024-04-22 07:51] LABS: BUN/Creatinine Ratio 11.8 (10.0-20.0); Blood Urea Nitrogen 29 mg/dL (9-23)
[2024-04-22 07:52] LABS: Potassium 3.3 mmol/L (3.5-5.1)
[2024-04-22 08:15] LABS: Glucose 693 mg/dL (74-106)
[2024-04-22 13:59] LABS: Chloride 111 mmol/L (98-107); Potassium 2.8 mmol/L (3.5-5.1); Sodium 145 mmol/L (136-145)
[2024-04-22] MEDS: POTASSIUM CHL 20MEQ/100ML 100 ML IV SCH (13:59)
[2024-04-22 14:00] LABS: Anion Gap 9 (5-15); Calcium 8.3 mg/dL (8.5-10.1); Carbon Dioxide 25 mmol/L (20-30)
[2024-04-22 14:05] LABS: BUN/Creatinine Ratio 14.3 (10.0-20.0); Blood Urea Nitrogen 32 mg/dL (9-23)
[2024-04-22 14:06] LABS: Glucose 193 mg/dL (74-106)
[2024-04-22] MEDS: SOD CHL 0.45% 1,000 ML IV SCH (15:26)
[2024-04-22] MEDS: InsuLIN REG 1unit/0.01ml Soln (100units/ml) SC SCH (16:00)
[2024-04-22 19:32] LABS: Alanine Aminotransferase 16 U/L (7-40); Albumin 3.5 g/dL (3.2-4.8); Alkaline Phosphatase 55 U/L (46-116); Anion Gap 10 (5-15); Aspartate Aminotransferase 34 U/L (13-40); BUN/Creatinine Ratio 14.6 (10.0-20.0); Blood Urea Nitrogen 32 mg/dL (9-23); Carbon Dioxide 24 mmol/L (20-30); Chloride 111 mmol/L (98-107); Glucose 187 mg/dL (74-106); Potassium 4.1 mmol/L (3.5-5.1); Sodium 145 mmol/L (136-145)
[2024-04-22 19:33] LABS: Bilirubin, Total 0.2 mg/dL (0.2-1.0); Total Protein 5.4 g/dL (5.7-8.2)
[2024-04-22] MEDS ORDERED: AMIODARONE HCL (50 MG/ ML) 3 ML VIAL IV ONE (21:30)
[2024-04-23] VITALS (112 sets, daily range): BP systolic 12–183; BP diastolic 43–94; PULSE 66–95; RESP 10–24; TEMP 99–100.2; O2SAT 91–100
[2024-04-23 03:41] LABS: Basophils # (auto) 0.1 10 ^3/uL (0-0.2); Basophils % (auto) 0.6 % (0.0-2.0); Eosinophils # (auto) 0 10 ^3/uL (0-0.8); Eosinophils % (auto) 0.2 % (0.0-7.0); Hematocrit 34.4 % (41.0-53.0); Hemoglobin 11.4 g/dL (13.5-17.5); Lymphocytes # (auto) 1.3 10 ^3/uL (0.4-5.4); Mean Corpuscular Hemoglobin 30.5 pg (28.0-32.0); Mean Corpuscular Volume 92.3 fL (80.0-100.0); Monocytes # (auto) 1.3 10 ^3/uL (0-1.3); Monocytes % (auto) 11.5 % (0.0-12.0); Neutrophils # (auto) 8.7 10 ^3/uL (1.6-8.6); Neutrophils % (auto) 76.7 % (37.0-80.0); Red Blood Cells 3.73 10^6/uL (4.5-5.90); Red Cell Distribution Width 14.9 % (11.8-14.3); White Blood Cell 11.4 10^3/uL (4.4-10.8)
[2024-04-23 04:04] LABS: Alanine Aminotransferase 15 U/L (7-40); Albumin 3.4 g/dL (3.2-4.8); Alkaline Phosphatase 55 U/L (46-116); Anion Gap 10 (5-15); Aspartate Aminotransferase 30 U/L (13-40); BUN/Creatinine Ratio 16.1 (10.0-20.0); Blood Urea Nitrogen 33 mg/dL (9-23); Carbon Dioxide 23 mmol/L (20-30); Chloride 110 mmol/L (98-107); Glucose 216 mg/dL (74-106); Potassium 3.3 mmol/L (3.5-5.1); Sodium 143 mmol/L (136-145)
[2024-04-23 04:05] LABS: Bilirubin, Total 0.3 mg/dL (0.2-1.0); Total Protein 5.2 g/dL (5.7-8.2)
[2024-04-23 07:30] LABS: Base Excess -3.6 mmol/L (-2.0-2.0)
[2024-04-23] MEDS: INSULIN LANTUS (GLARGINE) 1 /0.01ml (100units/ml) SC SCH (07:37)
[2024-04-23] MEDS: PANTOPRAZOLE 40 MG/10 ML VIAL INJ IV SCH (07:41)
[2024-04-23] MEDS: POTASSIUM CHL 20MEQ/100ML 100 ML IV SCH (07:41)
[2024-04-23 07:43] LABS: Magnesium 1.9 mg/dL (1.6-2.6)
[2024-04-23 07:44] LABS: Phosphorus 3.1 mg/dL (2.4-5.1)
[2024-04-23] MEDS: LABETALOL HCL 5 MG/ML 4ML SYRINGE IV PRN (10:42)
[2024-04-23] MEDS ORDERED: AMLO1TAB22 PO (10:48)
[2024-04-23] MEDS ORDERED: CARV-217 PO (10:52)
[2024-04-23] MEDS: ACETAMINOPHEN 325 MG TAB PO PRN (18:41)
[2024-04-23] MEDS: FUROSEMIDE 100 MG/10ML VIAL IV ONE (20:21)
[2024-04-24] VITALS (88 sets, daily range): BP systolic 92–197; BP diastolic 48–122; PULSE 11–134; RESP 10–32; TEMP 97.7–99.7; O2SAT 22–100
[2024-04-24 04:15] LABS: Basophils # (auto) 0 10 ^3/uL (0-0.2); Basophils % (auto) 0.4 % (0.0-2.0); Eosinophils # (auto) 0 10 ^3/uL (0-0.8); Eosinophils % (auto) 0.4 % (0.0-7.0); Hematocrit 33.5 % (41.0-53.0); Hemoglobin 11.1 g/dL (13.5-17.5); Lymphocytes # (auto) 0.8 10 ^3/uL (0.4-5.4); Lymphocytes % (auto) 12.8 % (10.0-50.0); Mean Corpuscular Hemoglobin 30.7 pg (28.0-32.0); Mean Corpuscular Hgb Conc. 33.1 g/dL (32.0-36.0); Mean Corpuscular Volume 92.8 fL (80.0-100.0); Monocytes # (auto) 0.8 10 ^3/uL (0-1.3); Monocytes % (auto) 11.7 % (0.0-12.0); Neutrophils # (auto) 4.9 10 ^3/uL (1.6-8.6); Neutrophils % (auto) 74.7 % (37.0-80.0); Red Blood Cells 3.61 10^6/uL (4.5-5.90); Red Cell Distribution Width 14.5 % (11.8-14.3); White Blood Cell 6.6 10^3/uL (4.4-10.8)
[2024-04-24 04:30] LABS: Anion Gap 8 (5-15); Carbon Dioxide 25 mmol/L (20-30); Chloride 109 mmol/L (98-107); Potassium 3.3 mmol/L (3.5-5.1); Sodium 142 mmol/L (136-145)
[2024-04-24 04:36] LABS: Glucose 268 mg/dL (74-106)
[2024-04-24 04:37] LABS: BUN/Creatinine Ratio 17.3 (10.0-20.0); Blood Urea Nitrogen 26 mg/dL (9-23)
[2024-04-24] MEDS: POTASSIUM CHL 20MEQ/100ML 100 ML IV ONE ×2 (05:48→11:22)
[2024-04-24] MEDS ORDERED: MORPHINE SULFATE INJ 2 MG/ml SYRG IV PRN (11:15)
[2024-04-24] MEDS: hydrALAZINE HCL 20 MG/ML VL IV PRN (12:50)
[2024-04-24] MEDS: FUROSEMIDE 100 MG/10ML VIAL IV ONE (12:50)
[2024-04-24] MEDS: LORazepam 2MG/ML-1ML VIAL IV PRN (13:19)
[2024-04-24] MEDS ORDERED: LIDOCAINE 2% TOPICAL JELLY 5 ML URJT TOP PRN (13:45)
[2024-04-24] MEDS: HALOPERIDOL LACTATE 5 MG/ML INJ VIAL IM PRN (15:21)
[2024-04-24] MEDS: LORazepam 2MG/ML-1ML VIAL IV ONE (16:39)
[2024-04-24] MEDS: MORPHINE SULFATE INJ 2 MG/ml SYRG IV PRN ×2 (16:40→23:22)
[2024-04-24] MEDS: HYDROmorphone HCL 2 MG/ML VL/or syr IV PRN (18:36)
[2024-04-24 20:45] LABS: Base Excess 0.6 mmol/L (-2.0-2.0)
[2024-04-25] VITALS (74 sets, daily range): BP systolic 129–198; BP diastolic 55–105; PULSE 70–129; RESP 10–94; TEMP 97.7–99.3; O2SAT 86–100
[2024-04-25 04:19] LABS: Basophils # (auto) 0.1 10 ^3/uL (0-0.2); Basophils % (auto) 0.8 % (0.0-2.0); Eosinophils # (auto) 0 10 ^3/uL (0-0.8); Eosinophils % (auto) 0.1 % (0.0-7.0); Hematocrit 37.8 % (41.0-53.0); Hemoglobin 12.7 g/dL (13.5-17.5); Lymphocytes # (auto) 1.1 10 ^3/uL (0.4-5.4); Lymphocytes % (auto) 11.3 % (10.0-50.0); Mean Corpuscular Hemoglobin 30.8 pg (28.0-32.0); Mean Corpuscular Hgb Conc. 33.6 g/dL (32.0-36.0); Mean Corpuscular Volume 91.8 fL (80.0-100.0); Monocytes # (auto) 1.1 10 ^3/uL (0-1.3); Monocytes % (auto) 10.7 % (0.0-12.0); Neutrophils # (auto) 7.7 10 ^3/uL (1.6-8.6); Neutrophils % (auto) 77.1 % (37.0-80.0); Red Blood Cells 4.11 10^6/uL (4.5-5.90); Red Cell Distribution Width 14.6 % (11.8-14.3)
[2024-04-25 04:24] LABS: Anion Gap 10 (5-15); Carbon Dioxide 27 mmol/L (20-30); Chloride 109 mmol/L (98-107); Potassium 2.7 mmol/L (3.5-5.1); Sodium 146 mmol/L (136-145)
[2024-04-25 04:30] LABS: BUN/Creatinine Ratio 14.9 (10.0-20.0); Blood Urea Nitrogen 17 mg/dL (9-23); Glucose 246 mg/dL (74-106)
[2024-04-25] MEDS: POTASSIUM CHL 20MEQ/100ML 100 ML IV SCH (11:18)
[2024-04-25] MEDS: FUROSEMIDE 40 MG/4 ML VIAL IV ONE (11:19)
[2024-04-25] MEDS: MORPHINE SULFATE INJ 2 MG/ml SYRG IV PRN (13:04)
[2024-04-25] MEDS: HALOPERIDOL LACTATE 5 MG/ML INJ VIAL IM PRN (21:45)
[2024-04-26] VITALS (62 sets, daily range): BP systolic 105–200; BP diastolic 54–95; PULSE 97–125; RESP 9–35; TEMP 96.8–100; O2SAT 84–98
[2024-04-26 04:03] LABS: Basophils # (auto) 0 10 ^3/uL (0-0.2); Basophils % (auto) 0.3 % (0.0-2.0); Eosinophils # (auto) 0 10 ^3/uL (0-0.8); Hematocrit 39.5 % (41.0-53.0); Hemoglobin 13.2 g/dL (13.5-17.5); Lymphocytes # (auto) 1.1 10 ^3/uL (0.4-5.4); Lymphocytes % (auto) 10.6 % (10.0-50.0); Mean Corpuscular Hemoglobin 30.6 pg (28.0-32.0); Mean Corpuscular Hgb Conc. 33.3 g/dL (32.0-36.0); Monocytes # (auto) 1.3 10 ^3/uL (0-1.3); Monocytes % (auto) 12.5 % (0.0-12.0); Neutrophils # (auto) 8.3 10 ^3/uL (1.6-8.6); Neutrophils % (auto) 76.6 % (37.0-80.0); Red Blood Cells 4.29 10^6/uL (4.5-5.90); White Blood Cell 10.8 10^3/uL (4.4-10.8)
[2024-04-26 04:20] LABS: Alanine Aminotransferase 28 U/L (7-40); Alkaline Phosphatase 71 U/L (46-116); Anion Gap 16 (5-15); Aspartate Aminotransferase 35 U/L (13-40); BUN/Creatinine Ratio 15.8 (10.0-20.0); Blood Urea Nitrogen 16 mg/dL (9-23); Calcium 9.3 mg/dL (8.5-10.1); Carbon Dioxide 24 mmol/L (20-30); Chloride 110 mmol/L (98-107); Glucose 202 mg/dL (74-106); Potassium 2.9 mmol/L (3.5-5.1); Sodium 150 mmol/L (136-145)
[2024-04-26 04:21] LABS: Bilirubin, Total 0.8 mg/dL (0.2-1.0); Total Protein 6.1 g/dL (5.7-8.2)
[2024-04-26] MEDS: POTASSIUM CHL 20MEQ/100ML 100 ML IV ONE (06:44)
[2024-04-26] MEDS ORDERED: DEXTROSE (50%) 50ML SYRG IV PRN (09:45)
[2024-04-26] MEDS: METOPROLOL SUCCINATE XL 50 MG TAB PO SCH (10:14)
[2024-04-26] MEDS: ACCU-CHEK COMFORT CURVE STRIP VI SCH (10:15)
[2024-04-26] MEDS: SOD CHL 0.45% WITH 20MEQ KCL 1,000 ML IV SCH (11:58)
[2024-04-26] MEDS: InsuLIN REG 1unit/0.01ml Soln (100units/ml) SC SCH (12:09)
[2024-04-27] VITALS (8 sets, daily range): BP systolic 109–156; BP diastolic 51–86; PULSE 80–104; RESP 17–21; TEMP 98–98.3; O2SAT 93–96
[2024-04-27 07:19] LABS: Calcium 8.6 mg/dL (8.5-10.1); Chloride 106 mmol/L (98-107); Potassium 2.8 mmol/L (3.5-5.1); Sodium 142 mmol/L (136-145)
[2024-04-27 07:20] LABS: Anion Gap 14 (5-15); Carbon Dioxide 22 mmol/L (20-30)
[2024-04-27 07:26] LABS: BUN/Creatinine Ratio 18.1 (10.0-20.0); Blood Urea Nitrogen 21 mg/dL (9-23); Glucose 272 mg/dL (74-106); Magnesium 1.6 mg/dL (1.6-2.6)
[2024-04-27] MEDS: INSULIN LANTUS (GLARGINE) 1 /0.01ml (100units/ml) SC SCH (11:02)
[2024-04-27] MEDS ORDERED: DIPHENOXYLATE W/ATROPINE 2.5 MG TAB PO PRN (11:30)
[2024-04-27] MEDS: MAGNESIUM SULFATE 1GM/100ML 100 ML IV ONE (12:43)
[2024-04-27] MEDS: LIDOCAINE 5% TOPICAL PATCH TOP SCH (12:46)
[2024-04-27] MEDS: POTASSIUM EFFERVESENT TAB 25 MEQ PO ONE (12:46)
[2024-04-27] MEDS: FLORASTOR (S. BOULARDII) 250 MG CAP PO SCH (12:46)
[2024-04-27] MEDS: HYDROcodone-ACET 7.5/325MG TAB PO PRN (14:05)
[2024-04-27] MEDS: POTASSIUM CHLORIDE 40 MEQ in SOD CHL 0.45% 1,000 ML IV SCH (14:26)
[2024-04-28 01:00] VITALS: BP 131/62; PULSE 89; RESP 18; TEMP 98.3; O2SAT 91
[2024-04-28 05:00] VITALS: BP 130/68; PULSE 91; RESP 18; TEMP 98.3; O2SAT 93
[2024-04-28 07:30] VITALS: PULSE 88
[2024-04-28 08:56] VITALS: BP 124/51
[2024-04-28] MEDS: POTASSIUM EFFERVESENT TAB 25 MEQ PO ONE (09:30)
== END 2024-04-28 10:10 | disposition home or self-care (01) | DRG 871 ==
LOC: ER 21:38 → TELE 04-22 00:52 → ICU WEST 04-22 11:33 → TELE-EAST 04-26 07:36
PROVIDERS: ADMIT Nurse Practitioner; ATTEND Nurse Practitioner Acute Care
PROC: 06HY33Z Insertion of Infusion Device into Lower Vein, Percutaneous Approach (ICD-10-PCS; principal; 2024-04-22)
PROC: 0BH17EZ Insertion of Endotracheal Airway into Trachea, Via Natural or Artificial Opening (ICD-10-PCS; 2024-04-22)
PROC: 5A1945Z Respiratory Ventilation, 24-96 Consecutive Hours (ICD-10-PCS; 2024-04-22)
DX: A40.0 Sepsis due to streptococcus, group A (principal); E11.10 Type 2 diabetes mellitus with ketoacidosis without coma; J96.00 Acute respiratory failure, unspecified whether with hypoxia or hypercapnia; N17.0 Acute kidney failure with tubular necrosis; R65.21 Severe sepsis with septic shock; G93.41 Metabolic encephalopathy; I47.20 Ventricular tachycardia, unspecified; E11.22 Type 2 diabetes mellitus with diabetic chronic kidney disease; K52.9 Noninfective gastroenteritis and colitis, unspecified; B95.0 Streptococcus, group A, as the cause of diseases classified elsewhere; N18.9 Chronic kidney disease, unspecified; I12.9 Hypertensive chronic kidney disease with stage 1 through stage 4 chronic kidney disease, or unspecified chronic kidney disease; E87.6 Hypokalemia; E86.0 Dehydration; K76.0 Fatty (change of) liver, not elsewhere classified; N20.0 Calculus of kidney; D69.6 Thrombocytopenia, unspecified; G89.29 Other chronic pain; M46.46 Discitis, unspecified, lumbar region; M62.838 Other muscle spasm; M48.062 Spinal stenosis, lumbar region with neurogenic claudication; Z79.899 Other long term (current) drug therapy
CPT/HCPCS: 31500; 36415; 36556; 36600; 71045; 72148; 74176; 80048; 80053; 80307; 80320; 80329; 81001; 82010; 82805; 82962; 83036; 83605; 83690; 83735; 83930; 84100; 84132; 84484; 85025; 85610; 85730; 87040; 87070; 87081; 87086; 87205; 92507; 93005; 93306; 94002; 94003; 94640; 96365; 96368; 96375; 97110; 97116; 97163; 97530; C9113; G0378; J0330; J1815; J2250; J2470; J2543; J3480; J3490; J7060